=== PATIENT | female | born 1980 | race Caucasian/White ===

== ENCOUNTER 2016-11-02 13:49 | Emergency (ER) | payer OTHER ==
[2016-11-02 13:54] VITALS: BP 121/88; BMI 26.5
--- NOTE | 2016-11-02 14:13 | DR.GENAD ---
HPI - PCP Primary Care Physician: uses the tx in [place] - Complaint/Symptoms Chief Complaint:: patient stated she has been having left side pain for over a week and she is 5 days late for her period. Self Treatment fo Chief Complaint: took a noemi epregnancy test and it was negative - Nurses notes reviewed Nurses Notes Review: Yes - Source History Provided: Patient - Mode of Arrival Mode of Arrival: Ambulatory - Timing Onset of Chief Complaint: 11/02/16 Came on: Gradually - Duration Duration: Intermittent How lon Duration: Days - Location Location: left flank - Severity Severity: Mild - Modifying Factors Worsens:: nothing - Associated Signs and Symptoms Associated Signs and Symptoms: nausea - Other History Other History: hx of stones PMH - PMH Past Medical History: Yes Past Medical History: Depression, PUD Past Surgical History: Yes Surgical History: Appendectomy - Family History History of Family Medical Conditions: No - Social History Does patient currently use any type of tobacco product: Yes Have you used tobacco products in the last 12 months: Yes Type of Tobacco Use: Cigarettes How many years tobacco product used: 12 Does any household member use tobacco: Yes Alcohol Use: None Do you use any recreational Drugs:: No Lives With: Family Lives Where: Home - infectious screening In the last 2 months have you had wt loss of >10#?: NO Have you had fever, night sweats or hemotysis?: No Have you traveled outside the country in the last 6 months?: No Isolation: Standard ROS - Review of Systems Constitutional: No Symptoms Reported Eyes: No Symptoms Reported ENTM: No Symptoms Reported Respiratoy: No Symptoms Reported Cardiovascular: No Symptoms Reported Gastrointestinal/Abdominal: Abdominal Pain, Nausea Genitourinary: No Symptoms Reported Neurological: No Symptoms Reported Musculoskeletal: No Symptoms Reported Integumentary: No Symptoms Reported Hematologic/Lymphatic: No Symptoms Reported Psychiatric: Depression PE - Vital Signs Vitals: Temperature 98.7 F Pulse Rate 70 Respiratory Rate 16 Blood Pressure [Right Arm] 95/50 Blood Pressure [Left Arm] 112/64 Blood Pressure 121/88 O2 Sat by Pulse Oximetry 100 - General Limitations: No Limitations General Appearance: Alert, In No Apparent Distress - Head Head Exam: Normal Inspection - Eyes Eye exam: Normal Appearance, EOMI. negative: Scleral Icterus, Conjunctival Injection - ENT ENT Exam: Normal External Ear Exam - Neck Neck Exam: Normal Inspection, Full ROM, Trachea Midline - Respiratory Respiratory Exam: negative: Accessory Muscle Use, Respiratory Distress - Abdominal Exam Abdominal Exam: Normal Inspection, Normal Bowel Sounds, Soft, Tenderness (LLQ). negative: Distention, Guarding, Rebound Abdominal Tenderness: LLQ - Extremities Extremities Exam: Normal Inspection, Full ROM - Back Back Exam: Normal Inspection - Neurologic Neurological Exam: Alert, Oriented X3, CN II-XII Intact - Psychiatric Psychiatric Exam: Depressed - Skin Skin Exam: Intact, Normal Color ROR - Labs Reviewed Laboratory: HCG, Quant < 1 mIU/mL (0-6) 11/02/16 14:35 Specimen Type Clean catch urine 11/02/16 14:23 Urine Color Yellow (YELLOW) 11/02/16 14:23 Urine Appearance Clear (CLEAR) 11/02/16 14:23 Urine pH 6.0 (5.0 - 8.0) 11/02/16 14:23 Ur Specific [place] 1.020 (1.000-1.030) 11/02/16 14:23 Urine Protein Negative (NEGATIVE) 11/02/16 14:23 Urine Glucose (UA) Negative (NEGATIVE) 11/02/16 14:23 Urine Ketones Negative (NEGATIVE) 11/02/16 14:23 Urine Occult Blood 4+ (NEGATIVE) 11/02/16 14:23 Urine Nitrite Negative (NEGATIVE) 11/02/16 14:23 Urine Bilirubin Negative (NEGATIVE) 11/02/16 14:23 Urine Urobilinogen Normal (NORMAL) 11/02/16 14:23 Ur Leukocyte Esterase Negative (NEGATIVE) 11/02/16 14:23 Urine RBC 1 - 3 /HPF (NEGATIVE) 11/02/16 14:23 Urine WBC Rare /HPF (NEGATIVE) 11/02/16 14:23 Ur Squamous Epith Cells Few /HPF (NEGATIVE) 11/02/16 14:23 Urine Bacteria Negative /HPF (NEGATIVE) 11/02/16 14:23 Ur Culture Indicated? No/not indicated 11/02/16 14:23 - XRAY XRAY Interpreted by: Radiologist XRAY Findings: CT ABDO/PELVIS: NORMAL - Diagnosis Discharge Problem: Pelvic pain - Discharge Plan Condition: Stable Prescriptions: Indomethacin [Indocin Cap 25 mg] 25 mg PO TID #30 cap - Follow ups/Referrals Follow ups/Referrals: NFD,None [Primary Care Provider] - 3 days - Instructions
[2016-11-02 14:50] LABS: BILIRUBIN,URINE NEGATIVE (NEGATIVE); BLOOD/HEMOGLOBIN,URINE 4+ (NEGATIVE); GLUCOSE, URINE NEGATIVE (NEGATIVE); KETONES,URINE NEGATIVE (NEGATIVE); LEUKOCYTE ESTERASE ,URINE NEGATIVE (NEGATIVE); NITRITES,URINE NEGATIVE (NEGATIVE); PROTEIN,URINE NEGATIVE (NEGATIVE); UROBILINOGEN,URINE NORMAL (NORMAL)
[2016-11-02 14:56] LABS: APPEARANCE,URINE CLEAR (CLEAR); BACTERIA,URINE NEGATIVE /HPF (NEGATIVE); COLOR,URINE YELLOW (YELLOW); SQUAMOUS EPITHELIAL CELL,UR FEW /HPF (NEGATIVE)
--- NOTE | 2016-11-02 16:04 | CT ---
HISTORY: Left flank pain, hematuria Study: CT abdomen and pelvis without contrast Comparison: 09/22/2013 Technique: Multiple axial images of the abdomen and pelvis were obtained without IV contrast. Oral contrast wa s administered. Dose reduction techniques including Automated Exposure Control (AEC) and adjustment of mA and kV were utilized. Findings: The visualized portions of the lung bases are unremarkable. The liver, spleen, pancreas, kidneys, a nd adrenal glands are unremarkable in their CT appearance. The gallbladder is normal. No renal calcu li or obstructive uropathy. The ureters are normal. No free intraperitoneal air. No evidence of intestinal obstruction or inflammation. The appendix is removed. No free fluid. Normal appearance of the urinary bladder The soft tissues and osseous structures are unremarkable. The vascular structures are unremarkable. No pathologically enlarged lymph nodes are identified. IMPRESSION: 1. Negative noncontrast abdomen/pelvis CT. No renal calculi or obstructive uropathy. Reported By:
== END 2016-11-02 16:23 | disposition home or self-care (01) ==
LOC: ER 13:59
DX: R10.2 Pelvic and perineal pain (principal)
CPT/HCPCS: 36415; 74176; 81001; 84702; 99282

== ENCOUNTER 2016-11-21 20:32 | Emergency (ER) | payer OTHER ==
[2016-11-21 20:38] VITALS: BP 138/70; BMI 26.5
[2016-11-21] MEDS ORDERED: TORADOL 60 MG VIAL IM ONE (21:33)
--- NOTE | 2016-11-21 21:35 | DR.GENAD ---
HPI - PCP Primary Care Physician: nfd - Complaint/Symptoms Chief Complaint Doctors Comments: Patient reports that the injury occured just prior to arrival. The right great toe hurts. Chief Complaint:: pt injuried her rt great toe and top of foot kicked a chair while playing with her kids - Source History Provided: Patient - Mode of Arrival Mode of Arrival: Ambulatory - Timing Onset of Chief Complaint: 11/21/16 PMH - PMH Past Medical History: Yes Past Medical History: Depression, GERD Past Surgical History: Yes Surgical History: Appendectomy - Family History History of Family Medical Conditions: No - Social History Alcohol Use: Rarely Do you use any recreational Drugs:: No Lives With: Family Lives Where: Home - infectious screening In the last 2 months have you had wt loss of >10#?: NO Have you had fever, night sweats or hemotysis?: No Have you traveled outside the country in the last 6 months?: No Isolation: Standard ROS - Review of Systems Constitutional: No Symptoms Reported Eyes: No Symptoms Reported ENTM: No Symptoms Reported Respiratoy: No Symptoms Reported Cardiovascular: No Symptoms Reported Gastrointestinal/Abdominal: No Symptoms Reported Genitourinary: No Symptoms Reported Neurological: No Symptoms Reported Musculoskeletal: No Symptoms Reported Integumentary: No Symptoms Reported Hematologic/Lymphatic: No Symptoms Reported Endocrine: No Symptoms Reported Psychiatric: No Symptoms Reported All Other Systems: Reviewed and Negative PE - Vital Signs Vitals: Temperature 98.6 F Pulse Rate 102 Respiratory Rate 18 Blood Pressure [Right Arm] 95/50 Blood Pressure [Left Arm] 112/64 Blood Pressure 138/70 O2 Sat by Pulse Oximetry 100 - General Limitations: No Limitations General Appearance: Alert, In No Apparent Distress - Head Head Exam: Normal Inspection, Atraumatic - Eyes Eye exam: Normal Appearance, PERRL, EOMI - ENT ENT Exam: Normal Exam External Ear Exam: Normal External Inspection TM/Canal Exam: Bilateral Normal Nose Exam: Normal Nose Exam Mouth Exam: Normal Inspection Throat Exam: Normal Inspection - Neck Neck Exam: Normal Inspection, Full ROM - Chest Chest Inspection: Normal Inspection - Respiratory Respiratory Exam: Normal Lung Sounds Bilat Respiratory Exam: Bilateral Clear to Auscultation - Cardiovascular Cardiovascular Exam: Regular Rate, Normal Rhythm - Abdominal Exam Abdominal Exam: Normal Inspection, Normal Bowel Sounds Abdominal Tenderness: negative: RUQ, RLQ, LUQ, LLQ, Epigastrium, Suprapubic, Diffuse, Mild, Moderate, Severe, Other - Extremities Extremities Exam: Normal Inspection, Other (Right great tender slightly swollen , dorsum of right foot dusky swollen) - Back Back Exam: Normal Inspection - Neurologic Neurological Exam: Alert, Oriented X3, CN II-XII Intact - Psychiatric Psychiatric Exam: Normal Affect, Normal Mood - Skin Skin Exam: Warm, Dry ROR - XRAY XRAY Interpreted by: Radiologist (Findings: There is great toe MTP joint DJD with small bunion deformity. Soft tissue prominence at the 5th toe MTP joint may represent bunionette. There is no cortical lucency or gorss malalignment. Impression: No acute fracture, Great toe MTP joint degenerative change with bunion deformity. 5th toe MTP joint soft tissue abnormality compatible with bunionette deformity.) - Diagnosis Discharge Problem: Arthritis - Discharge Plan Condition: Stable - Follow ups/Referrals Follow ups/Referrals: NFD,None [Primary Care Provider] - 3 days - Instructions
[2016-11-21] MEDS ORDERED: TORADOL 60 MG VIAL ONE (21:36)
--- NOTE | 2016-11-21 22:27 | RAD ---
Right foot three views Indication: Great toe injury. Findings: There is great toe MTP joint DJD with small bunion deformity. Soft tissue prominence at th e 5th toe MTP joint may represent bunionette. There is no cortical lucency or gross malalignment. Impression: 1. No acute fracture. Great toe MTP joint degenerative change with bunion deformity. 2. 5th toe MTP joint soft tissue abnormality compatible with bunionette deformity. Reported By:
== END 2016-11-21 22:48 | disposition home or self-care (01) ==
LOC: ER 20:42
DX: M19.90 Unspecified osteoarthritis, unspecified site (principal); X58.XXXA Exposure to other specified factors, initial encounter; Y92.9 Unspecified place or not applicable
CPT/HCPCS: 73630; 96372; 99282; J1885

== ENCOUNTER 2017-01-26 17:52 | Emergency (ER) | payer OTHER ==
[2017-01-26 17:58] VITALS: BP 125/57; BMI 25.7
--- NOTE | 2017-01-26 22:09 | DR.GENAD ---
HPI - PCP Primary Care Physician: [facility] - Complaint/Symptoms Chief Complaint Doctors Comments: I agree with statement. Patient denies LOC.she states that she got a concussion on last night. Chief Complaint:: PT C/O HEADACHE, DIZZINESS, N/V AND SCALP LACERATION THAT HAPPENED LAST NIGHT. PT STATES HER FELL OVER ON TOP OF HER AND HIS TOOTH HIT HER IN HER HEAD WHICH CAUSED A SMALL ABRASION - Source History Provided: Patient - Mode of Arrival Mode of Arrival: Ambulatory - Timing Onset of Chief Complaint: 01/25/17 PMH - PMH Past Medical History: Yes Past Medical History: Depression, GERD Past Surgical History: Yes Surgical History: Appendectomy - Family History History of Family Medical Conditions: No - Social History Does patient currently use any type of tobacco product: Yes Have you used tobacco products in the last 12 months: Yes Type of Tobacco Use: Cigarettes Does any household member use tobacco: Yes Alcohol Use: None Do you use any recreational Drugs:: No Lives With: Family Lives Where: Home - infectious screening In the last 2 months have you had wt loss of >10#?: NO Have you had fever, night sweats or hemotysis?: No Have you traveled outside the country in the last 6 months?: No Isolation: Standard ROS - Review of Systems Constitutional: Diaphoresis Eyes: No Symptoms Reported ENTM: No Symptoms Reported Respiratoy: No Symptoms Reported Cardiovascular: No Symptoms Reported Gastrointestinal/Abdominal: No Symptoms Reported Genitourinary: No Symptoms Reported Neurological: No Symptoms Reported Musculoskeletal: No Symptoms Reported Integumentary: No Symptoms Reported, Other (A lead pencil type lesion on scalp anterior aspecct) Hematologic/Lymphatic: No Symptoms Reported Endocrine: No Symptoms Reported Psychiatric: No Symptoms Reported All Other Systems: Reviewed and Negative PE - Vital Signs Vitals: Temperature 98.3 F Pulse Rate 69 Respiratory Rate 20 Blood Pressure [Right Arm] 95/50 Blood Pressure [Left Arm] 112/64 Blood Pressure 125/57 O2 Sat by Pulse Oximetry 100 - General Limitations: No Limitations General Appearance: Alert, In No Apparent Distress - Head Head Exam: Normal Inspection, Atraumatic - Eyes Eye exam: Normal Appearance, PERRL, EOMI - ENT ENT Exam: Normal Exam External Ear Exam: Normal External Inspection TM/Canal Exam: Bilateral Normal Nose Exam: Normal Nose Exam Mouth Exam: Normal Inspection Throat Exam: Normal Inspection - Neck Neck Exam: Normal Inspection, Full ROM - Chest Chest Inspection: Normal Inspection - Respiratory Respiratory Exam: Normal Lung Sounds Bilat Respiratory Exam: Bilateral Clear to Auscultation - Cardiovascular Cardiovascular Exam: Regular Rate, Normal Rhythm - Abdominal Exam Abdominal Exam: Normal Inspection, Normal Bowel Sounds Abdominal Tenderness: negative: RUQ, RLQ, LUQ, LLQ, Epigastrium, Suprapubic, Diffuse, Mild, Moderate, Severe, Other - Extremities Extremities Exam: Normal Inspection, Full ROM - Back Back Exam: Normal Inspection, Full ROM - Neurologic Neurological Exam: Alert, Oriented X3, CN II-XII Intact - Psychiatric Psychiatric Exam: Normal Affect, Normal Mood - Skin Skin Exam: Warm, Dry, Intact - Diagnosis Discharge Problem: Scalp abrasion Qualifiers: Encounter type: initial encounter Qualified Code(s): S00.01XA - Abrasion of scalp, initial encounter - Discharge Plan Condition: Stable - Follow ups/Referrals Follow ups/Referrals: Brianna HERNODNc [Primary Care Provider] - 3 days - Instructions
== END 2017-01-26 22:28 | disposition home or self-care (01) ==
LOC: ER 18:02
DX: S00.01XA Abrasion of scalp, initial encounter (principal); W18.39XA Other fall on same level, initial encounter; Y92.89 Other specified places as the place of occurrence of the external cause
CPT/HCPCS: 99281; 99282

== ENCOUNTER 2017-04-24 12:26 | Emergency (ER) | payer OTHER ==
[2017-04-24 12:30] VITALS: BP 121/90; BMI 23.9
--- NOTE | 2017-04-24 14:26 | DR.GENAD ---
HPI - PCP Primary Care Physician: randi [facility] - Complaint/Symptoms Chief Complaint Doctors Comments: [facility]. Patient reports that she usually takes Excedrin for the endometriosis that the camping is very bad today. Chief Complaint:: patient stated she started her period today and she has indometraosis and the cramps are worse this time. - Source History Provided: Patient - Mode of Arrival Mode of Arrival: Ambulatory - Timing Onset of Chief Complaint: 04/24/17 PMH - PMH Past Medical History: Yes Past Medical History: Depression, GERD Past Surgical History: Yes Surgical History: Appendectomy - Family History History of Family Medical Conditions: No - Social History Does patient currently use any type of tobacco product: Yes Have you used tobacco products in the last 12 months: Yes Type of Tobacco Use: Cigarettes How many years tobacco product used: 10 Does any household member use tobacco: Yes Alcohol Use: None Do you use any recreational Drugs:: No Lives With: Family Lives Where: Home - infectious screening In the last 2 months have you had wt loss of >10#?: NO Have you had fever, night sweats or hemotysis?: No Have you traveled outside the country in the last 6 months?: No Isolation: Standard ROS - Review of Systems Constitutional: No Symptoms Reported Eyes: No Symptoms Reported ENTM: No Symptoms Reported Respiratoy: No Symptoms Reported Cardiovascular: No Symptoms Reported Gastrointestinal/Abdominal: No Symptoms Reported Genitourinary: Other (pelvic pain) Neurological: No Symptoms Reported Musculoskeletal: No Symptoms Reported Integumentary: No Symptoms Reported Hematologic/Lymphatic: No Symptoms Reported Endocrine: No Symptoms Reported Psychiatric: No Symptoms Reported All Other Systems: Reviewed and Negative PE - Vital Signs Vitals: Temperature 98.7 F Pulse Rate 88 Respiratory Rate 18 Blood Pressure [Right Arm] 95/50 Blood Pressure [Left Arm] 112/64 Blood Pressure 121/90 O2 Sat by Pulse Oximetry 100 - General Limitations: No Limitations General Appearance: Alert, In No Apparent Distress - Head Head Exam: Normal Inspection, Atraumatic - Eyes Eye exam: Normal Appearance, PERRL, EOMI - ENT ENT Exam: Normal Exam External Ear Exam: Normal External Inspection TM/Canal Exam: Bilateral Normal Nose Exam: Normal Nose Exam Mouth Exam: Normal Inspection Throat Exam: Normal Inspection - Neck Neck Exam: Normal Inspection - Chest Chest Inspection: Normal Inspection - Respiratory Respiratory Exam: Normal Lung Sounds Bilat Respiratory Exam: Bilateral Clear to Auscultation - Cardiovascular Cardiovascular Exam: Regular Rate, Normal Rhythm - Abdominal Exam Abdominal Exam: Normal Inspection, Normal Bowel Sounds Abdominal Tenderness: negative: RUQ, RLQ, LUQ, LLQ, Epigastrium, Suprapubic, Diffuse, Mild, Moderate, Severe, Other - Extremities Extremities Exam: Normal Inspection - Back Back Exam: Normal Inspection, Full ROM - Neurologic Neurological Exam: Alert, Oriented X3, CN II-XII Intact - Psychiatric Psychiatric Exam: Normal Affect - Skin Skin Exam: Warm, Dry, Intact - Diagnosis Discharge Problem: Endometriosis - Discharge Plan Condition: Stable - Follow ups/Referrals Follow ups/Referrals: NFD,None [Primary Care Provider] - 3 days - Instructions
[2017-04-24] MEDS ORDERED: DEMEROL INJ IM ONE (14:29)
[2017-04-24] MEDS ORDERED: DEMEROL INJ ONE (14:33)
== END 2017-04-24 14:54 | disposition home or self-care (01) ==
LOC: ER 12:43
DX: N80.8 Other endometriosis (principal)
CPT/HCPCS: 96372; 99282; J2175

== ENCOUNTER 2017-11-17 14:34 | Emergency (ER) | payer OTHER ==
[2017-11-17 14:40] VITALS: BP 118/71; BMI 22.4
[2017-11-17] MEDS ORDERED: LEVAQUIN TAB 500 MG PO STA (17:28)
[2017-11-17] MEDS ORDERED: ROBITUSSIN DM PO STA (17:29)
[2017-11-17] MEDS ORDERED: BENADRYL CAP 50 MG PO ONE (17:29)
--- NOTE | 2017-11-17 17:33 | DR.GENAD ---
HPI - PCP Primary Care Physician: IVAN - Complaint/Symptoms Chief Complaint Doctors Comments: Patient has been complaining of a constant cough, sore throat with nasal congestion for the past three weeks. States she has been trying to manage her symptoms at home without improvement. She denies fever, chills, nausea or vomiting. States she has had periods of wheezing earlier but none today. States she had asthma as a child. States her last period was October 20 and she is not taking any contraceptives. State she is not . She smokes 1/2 pack cigarettes daily. Chief Complaint:: " I HAVE BEEN COUGHING AND MY THROAT IS SORE. I CAN'T TAKE A DEEP BREATH." Self Treatment fo Chief Complaint: NONE - Nurses notes reviewed Nurses Notes Review: Yes - Source History Provided: Patient - Mode of Arrival Mode of Arrival: Ambulatory - Timing Onset of Chief Complaint: 11/03/17 Came on: Gradually - Duration Duration: Intermittent How lon Duration: Weeks - Location Location: cough - Severity Severity: Mild - Modifying Factors Worsens:: nothing Improves:: nothing PMH - PMH Past Medical History: Yes Past Medical History: Anemia, Depression Past Medical History Comment: PTSD Past Surgical History: Yes Surgical History: Appendectomy - Family History History of Family Medical Conditions: No - Social History Does patient currently use any type of tobacco product: Yes Have you used tobacco products in the last 12 months: Yes Type of Tobacco Use: Cigarettes How many years tobacco product used: 12 Does any household member use tobacco: Yes Alcohol Use: None Do you use any recreational Drugs:: No Lives With: Family Lives Where: Home - infectious screening In the last 2 months have you had wt loss of >10#?: NO Have you had fever, night sweats or hemotysis?: No Have you traveled outside the country in the last 6 months?: No Isolation: Standard ROS - Review of Systems Constitutional: No Symptoms Reported. negative: See HPI, Chills, Diaphoresis, Fever, Malaise, Weakness, Irritable, Fatigue, Loss of Appetite, Other Eyes: No Symptoms Reported. negative: See HPI, Eye Pain, Blurred Vision, Tearing, Discharge, Photophobia, Diplopia, Other ENTM: No Symptoms Reported, Nose Discharge, Nose Congestion, Throat Pain. negative: See HPI, Ear Pain, Ear Discharge, Pulling on Ears, Hearing Loss, Nose Pain, Epistaxis, Mouth Pain, Mouth Swelling, Loose Teeth, Drooling, Throat Swelling, Ear Foreign Body Respiratoy: No Symptoms Reported, Non-Productive Cough, Dry Cough. negative: See HPI, Productive Cough, Moist Cough, Hacking Cough, Barking Cough, Brassy Cough, Orthopnea, Short of Breath, Stridor, Wheezing, Hemoptysis, Other Cardiovascular: No Symptoms Reported. negative: See HPI, Chest Pain, Edema, Palpitations, Syncope, Cyanosis, Skin Mottling, Other Gastrointestinal/Abdominal: No Symptoms Reported. negative: See HPI, Abdominal Pain, Constipation, Diarrhea, Nausea, Vomiting, Food Intolerance, Other Genitourinary: No Symptoms Reported. negative: See HPI, Discharge, Dysuria, Frequency, Hematuria, Pain, Bleeding, Other Neurological: No Symptoms Reported. negative: See HPI, Anxiety, Depressed, Emotional Problems, Headache, Numbness, Paresthesia, Pre-existing Deficit, Seizure, Tingling, Tremors, Weakness, Dizziness, Problems Walking, Speech Problem, Other Musculoskeletal: No Symptoms Reported. negative: See HPI, Back Pain, Gout, Joint Pain, Joint Swelling, Muscle Pain, Muscle Stiffness, Neck Pain, Right, Left, Neck, Chest wall, Rib(s), Back, Shoulder, Arm, Elbow, Forearm, Wrist, Hand , Pelvis, Hip, Leg, Knee, Ankle, Foot, Other Integumentary: No Symptoms Reported Hematologic/Lymphatic: No Symptoms Reported. negative: See HPI, Anemia, Blood Clots, Easy Bleeding, Easy Bruising, Swollen Glands, Lymphadenopathy, Other Endocrine: No Symptoms Reported Psychiatric: No Symptoms Reported. negative: See HPI, Anxiety, Depression, Hallucinations, Excessive crying, Suicidal, Other PE - Vital Signs Vitals: Temperature 98.8 F Pulse Rate 89 Respiratory Rate 20 Blood Pressure [Right Arm] 95/50 Blood Pressure [Left Arm] 112/64 Blood Pressure 118/71 O2 Sat by Pulse Oximetry 100 - General Limitations: No Limitations General Appearance: Alert, In No Apparent Distress - Head Head Exam: Normal Inspection, Atraumatic, Normocephalic - Eyes Eye exam: Normal Appearance, PERRL, EOMI. negative: Scleral Icterus, Conjunctival Injection, Nystagmus, Miosis, Mydrasis, Periorbital Swelling, Periorbital Tenderness, Other - ENT ENT Exam: Normal Exam, Normal Oropharynx, Normal External Ear Exam, Mucous Membranes Moist, TM's Normal Bilaterally External Ear Exam: Normal External Inspection TM/Canal Exam: Bilateral Normal Nose Exam: Normal Nose Exam Mouth Exam: Normal Inspection Throat Exam: Normal Inspection - Neck Neck Exam: Normal Inspection, Full ROM, Trachea Midline - Chest Chest Inspection: Normal Inspection - Respiratory Respiratory Exam: Normal Lung Sounds Bilat Respiratory Exam: Bilateral Clear to Auscultation - Cardiovascular Cardiovascular Exam: Regular Rate, Normal Rhythm, Normal Heart Sounds - Abdominal Exam Abdominal Exam: Normal Inspection, Normal Bowel Sounds, Soft. negative: Distention, Tenderness, Guarding, Rebound, Rigidity, Dimnished Bowel Sounds, Hyperactive Bowel Sounds, Hypoactive Bowel Sounds, Organomegaly, Trauma, Incision, Ascites, Mass, Bruit, Pulsatile Mass, Hernia, Other Abdominal Tenderness: negative: RUQ, RLQ, LUQ, LLQ, Epigastrium, Suprapubic, Diffuse, Mild, Moderate, Severe, Other - Extremities Extremities Exam: Normal Inspection, Full ROM, Normal Capillary Refill. negative: Tenderness, Edema, Joint Swelling, Calf Tenderness, Other - Back Back Exam: Normal Inspection, Full ROM. negative: Tenderness, (R) CVA Tenderness, (L) CVA Tenderness, Muscle Spasm, Paraspinal Tenderness, Vertebral Tenderness, Rashes, (R) Sciatic Notch Tenderness, (L) Sciatic Notch Tendern, (R ) Straight Leg Raise, (L) Straight Leg Raise, Other - Neurologic Neurological Exam: Alert, Oriented X3, CN II-XII Intact, Normal Gait, Reflexes Normal - Psychiatric Psychiatric Exam: Normal Affect, Normal Mood - Skin Skin Exam: Warm, Dry, Intact, Normal Color ROR - Labs Reviewed Laboratory: S. pyogenes (TEM-PCR) Not detected (NOT DETECT) 11/17/17 16:45 - Diagnosis Discharge Problem: Pharyngitis Bronchitis, acute Qualifiers: Bronchitis organism: other organism Qualified Code(s): J20.8 - Acute bronchitis due to other specified organisms Sinusitis, acute Qualifiers: Sinusitis location: maxillary - Discharge Plan Disposition: 01 HOME, SELF-CARE Condition: Stable Prescriptions: Ciprofloxacin/Ciprofloxa HCl [Cipro XR 500 mg] 1 tab PO Q24H #10 tab.sr Fluticasone Nasal [place] [FLONASE NASAL SPRAY *] 2 sprays ENOSTRIL DAILY #1 each Loratadine [Claritin] 10 mg PO DAILY #30 tab - Follow ups/Referrals Follow ups/Referrals: Phil Laura [Primary Care Provider] - 3 days - Instructions Instructions: Sinusitis, Adult, [id number], Acute Bronchitis, Adult, Easy-to- Read, Sore Throat, [id number]
[2017-11-17] MEDS ORDERED: BENADRYL CAP/TAB 25 MG PO ONE (17:34)
[2017-11-17] MEDS ORDERED: ROBITUSSIN DM ONE (17:34)
[2017-11-17] MEDS ORDERED: LEVAQUIN TAB 500 MG ONE (17:34)
[2017-11-17] MEDS ORDERED: DUONEB 0.5 MG/3 MG NEB ONE (17:38)
[2017-11-17] MEDS ORDERED: DUONEB 0.5 MG/3 MG ONE (17:41)
== END 2017-11-17 17:54 | disposition home or self-care (01) ==
LOC: ER 14:45
DX: J20.8 Acute bronchitis due to other specified organisms (principal); J01.80 Other acute sinusitis; J02.9 Acute pharyngitis, unspecified
CPT/HCPCS: 87651; 99282; 99283; J7620